=== PATIENT | male | born 1990 | race Hispanic/Latino ===

== ENCOUNTER 2018-09-28 19:22 | Emergency (ER) | payer OTHER, SELFPAY ==
--- NOTE | 2018-09-28 20:30 | RAD ---
RIGHT HAND THREE VIEWS: History: 28-year-old male with history of pain and injury to right hand following punching something. FINDINGS: Slightly comminuted displaced fractures of the fourth and fifth metacarpals with prominent volar angu lation and resultant foreshortening. IMPRESSION: Comminuted displaced and foreshortened mid fourth and fifth metacarpal fractures. Associated soft tis nakia swelling. POS: BRENNEN
== END 2018-09-28 20:15 | disposition home or self-care (01) ==
LOC: ERS 19:22
DX: S62.324A Displaced fracture of shaft of fourth metacarpal bone, right hand, initial encounter for closed fracture (principal); S62.326A Displaced fracture of shaft of fifth metacarpal bone, right hand, initial encounter for closed fracture; W22.8XXA Striking against or struck by other objects, initial encounter
CPT/HCPCS: 29125

== ENCOUNTER 2018-10-07 09:47 | Day surgery (SDC) | payer OTHER, SELFPAY ==
[2018-10-06 13:33] VITALS: BMI 26.4
[2018-10-07] MEDS ORDERED: Midazolam HCl 2 mg/2 ml Vial ONE (12:46)
[2018-10-07] MEDS ORDERED: CEFAZOLIN 2 GM/50 ML BAG ONE (13:26)
[2018-10-07] MEDS ORDERED: Fentanyl 100 MCG/2 ML VIAL ONE ×2 (13:45→15:07)
[2018-10-07] MEDS ORDERED: Bupivacaine/Epinephrine 0.25% 30 ML VIAL ONE (13:53)
[2018-10-07] MEDS ORDERED: PROPOFOL 200 MG/20 ML VIAL ONE (14:46)
[2018-10-07] MEDS ORDERED: Dexamethasone 20 MG/5 ML VIAL ONE (14:46)
[2018-10-07] MEDS ORDERED: Ondansetron PF 4 MG/2 ML Vial ONE (14:46)
[2018-10-07] MEDS ORDERED: Ketorolac Tromethamine 30 MG/ML VIAL ONE (15:07)
[2018-10-07] MEDS ORDERED: Morphine 2 MG/ML SYRINGE ONE (15:27)
--- NOTE | 2018-10-07 15:36 | RAD ---
RIGHT HAND 3 VIEWS: HISTORY: Fractures of the 4th and 5th metacarpals of the right hand. FINDINGS/IMPRESSION: Three spot fluoroscopic intraoperative images of the right hand demonstrate interval reduction and in ternal fixation of the fractures of the shafts of the 4th and 5th metacarpals with plate and screws s latia 09/28/2018. POS: ALEXIA
[2018-10-07] MEDS ORDERED: Labetalol HCl 100 MG/20 ML VIAL ONE (15:57)
[2018-10-07] MEDS ORDERED: Morphine 4 MG/ML VIAL ONE (16:06)
[2018-10-07] MEDS ORDERED: hydrALAZINE 20 MG/ML VIAL ONE (16:47)
[2018-10-07] MEDS ORDERED: HYDROcodone/Acetaminophen 5/325 mg Tablet ONE (17:59)
--- NOTE | 2018-10-07 19:25 | OP ---
DATE OF OPERATION: 10/07/2018 PREOPERATIVE DIAGNOSIS: Displaced midshaft fractures of fourth and fifth metacarpals of the right arnold nd. POSTOPERATIVE DIAGNOSIS: Displaced midshaft fractures of fourth and fifth metacarpals of the right h and. PROCEDURE: Open reduction internal fixation of the midshaft fracture of the fourth and fifth metacar pals of the right hand. SURGEON: Jatin Baez M.D. ANESTHESIA: General. TECHNIQUE: The patient was given preoperative IV antibiotics, taken to the operating room, placed in supine position. Satisfactory general anesthesia was performed. The right hand and upper extremity were sterilely prepped and draped in usual fashion. After exsanguination, the tourniquet was raised to 250 mmHg at the right arm. A longitudinal incision was made between the fourth and fifth metacar pals approximately 2 inches in length. Blunt dissection was made initially down to the dorsal aspect of the fifth metacarpal shaft. Periosteal elevation was performed. The mid shaft fracture was note d to be completely displaced and shortened and dorsally angulated. Fracture was manipulated, reduced , held reduced with a smooth K-wire and then internally fixed with a Synthes 5-hole plate using two 2 .0 cortical screws proximal to the fracture and two 2.0 cortical screws distal to the fracture. The smooth K-wire was removed. C-arm verified good reduction of the fifth metacarpal fracture and proper placement of the plate and screws. In the same fashion, through the same incision, the dorsum of th e fourth metacarpal was exposed and was reduced and internally fixed using a 6-hole Synthes plate and using two 2.0 cortical screws proximally and two 2.0 cortical screws distally. This provided good r eduction and fixation of both the fourth and fifth metacarpal fractures. The wound was then copiousl y irrigated with normal saline and closed using 3-0 Rapide. The wound was then infiltrated with 20 m L of 0.5% Marcaine with epinephrine. Sterile dressing was applied. The tourniquet was released. Th e patient was awakened, extubated, and transferred to the recovery room in stable condition. ESTIMATED BLOOD LOSS: None. COMPLICATIONS: None. TOURNIQUET TIME: 54 minutes. DISCHARGE MEDICATIONS: Tylenol #4 one every 6 hours as needed for pain, #50. Follow up in my office in 1 week. The patient was asked to keep the right hand clean, dry, elevated and avoid any pushing, pulling or lifting with the right hand.
== END 2018-10-07 18:20 | disposition home or self-care (01) ==
LOC: SDC 09:47
PROVIDERS: ATTEND Orthopaedic Surgery
PROC: 0PSP0ZZ Reposition Right Metacarpal, Open Approach (ICD-10-PCS; principal; 2018-10-07)
PROC: 0PSP04Z Reposition Right Metacarpal with Internal Fixation Device, Open Approach (ICD-10-PCS; principal; 2018-10-07)
DX: S62.324A Displaced fracture of shaft of fourth metacarpal bone, right hand, initial encounter for closed fracture (principal); S62.326A Displaced fracture of shaft of fifth metacarpal bone, right hand, initial encounter for closed fracture
CPT/HCPCS: 76001; 96374; 96375; 96376; C1713; J0360; J1100; J1885; J2250; J2270; J2405; J2704; J3010

== ENCOUNTER 2020-09-25 01:45 | Emergency (ER) | payer OTHER ==
--- NOTE | 2020-09-25 07:52 | RAD ---
RADIOGRAPH CHEST 2 VIEWS: DATE: HISTORY: Chest trauma artery occlusion FINDINGS: There is no airspace density, pulmonary edema, pleural effusion, pneumothorax, or cardiomegaly. Scoli osis of mid-upper thoracic spine. IMPRESSION: No acute cardiopulmonary findings.
== END 2020-09-25 03:00 | disposition home or self-care (01) ==
LOC: ERS 01:45
DX: Z04.1 Encounter for examination and observation following transport accident (principal); R00.0 Tachycardia, unspecified; V67.5XXA Driver of heavy transport vehicle injured in collision with fixed or stationary object in traffic accident, initial encounter
CPT/HCPCS: 71046

== ENCOUNTER 2024-09-16 10:42 | Outpatient (CLI) | payer SELFPAY | END 2024-09-16 10:43 | disposition home or self-care (01) | LOC: SCSRAD 10:42 | PROVIDERS: ATTEND Nurse Practitioner Family | DX: M79.671 Pain in right foot (principal) ==